=== PATIENT | female | born 1985 | race Caucasian/White ===

== ENCOUNTER 2020-06-17 22:44 | Outpatient (CLI) | payer OTHER, SELFPAY ==
[2020-06-17 22:56] VITALS: TEMP 36.8
[2020-06-18 00:46] VITALS: BP 119/68; PULSE 108
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
--- NOTE | 2020-06-18 16:18 | PCCCNOTE ---
Care Coordination. Pt. referred to SS when discharged for possible baby care items. Pt. discharged when CC got referral. I called pt. this afternoon and left a message, but did not hear back from her.
== END 2020-06-18 00:27 | disposition home or self-care (01) ==
LOC: ANHLDR 06-18 00:32 → ANHOBOP 06-19 09:33 → ANHLDR 06-19 09:33
PROVIDERS: PCP Family Medicine; Visit Provider Obstetrics & Gynecology
DX: O42.90 Premature rupture of membranes, unspecified as to length of time between rupture and onset of labor, unspecified weeks of gestation (principal); Z3A.00 Weeks of gestation of pregnancy not specified
CPT/HCPCS: 59025; 99199

== ENCOUNTER 2020-06-18 17:21 | Outpatient (CLI) | payer OTHER, SELFPAY ==
--- NOTE | ~2020-06-18 | US_ITS ---
EXAMINATION: US OB follow up DATE: 06/18/2020 17:52 INDICATION: False labor during third trimester of TECHNIQUE: Real-time ultrasound of the pelvis was performed. The interpreting radiologist was not pre sent for the study. COMPARISON: None. FINDINGS: There is a single living fetus in vertex presentation. The placenta is posterior. heart rate i s 152 beats per minute (bpm). The amniotic fluid index is 9.3 cm, which is normal (5th%-95%: 8.3-bod y 4.5 cm at 33 weeks estimated gestational age). The following biometric data were obtained: BPD: 8.6 cm -> 34 weeks 5 days Head circumference: 30.5 cm -> 33 weeks 6 days Abdominal circumference: 30.0 cm -> 34 weeks 0 days Femur length: 6.4 cm -> 33 weeks 1 days These measurements are concordant. Head circumference to abdominal circumference ratio: 1.02 (normal range 0.95-1.11). Estimated weight: 2279 g (+/-) 342 g. or 5 lbs. 0 oz. (+/-) 12 oz. IMPRESSION: 1. Single living fetus in vertex presentation with heart rate of 152 bpm. 2. Gestational age by ultrasound of 34 weeks 0 day(s) +/- 2 week(s) 3 day(s) with ultrasound estimate d date of delivery (UTE) of 07/30/2020. Estimated weight is 53rd percentile by Hadlock criteria when 08/03/2020 is used as the UTE. Please correlate with clinical information or earlier ultrasound s for most accurate UTE. 3. Normal amniotic fluid index of 9.3 cm. Reviewed, dictated and finalized at location A. IMPRESSION: 1. Single living fetus in vertex presentation with heart rate of 152 bpm. 2. Gestational age by ultrasound of 34 weeks 0 day(s) +/- 2 week(s) 3 day(s) wi th ultrasound estimated date of delivery (UTE) of 07/30/2020. Estimated w eight is 53rd percentile by Hadlock criteria when 08/03/2020 is used as the UTE . Please correlate with clinical information or earlier ultrasounds for most ac curate UTE. 3. Normal amniotic fluid index of 9.3 cm.
== END 2020-06-18 17:22 | disposition home or self-care (01) ==
PROVIDERS: PCP Family Medicine; Visit Provider Obstetrics & Gynecology
DX: O60.03 Preterm labor without delivery, third trimester (principal); Z3A.34 34 weeks gestation of pregnancy
CPT/HCPCS: 76816

== ENCOUNTER 2020-07-22 23:20 | Inpatient (IN) | payer OTHER, SELFPAY ==
[2020-07-22 23:49] VITALS: BP 117/50; PULSE 116
[2020-07-23] VITALS (46 sets, daily range): BP systolic 77–134; BP diastolic 41–92; PULSE 94–123; RESP 16; TEMP 36.5–36.9; O2SAT 99–100; BMI 35.2
[2020-07-23 00:36] LABS: Basophils Absolute Auto 0.1 K/mm3 (0.0-0.1); Basophils Percent Auto 0.4 % (0.2-1.2); Eosinophils Absolute Auto 0.2 K/mm3 (0-0.3); Eosinophils Percent Auto 1.1 % (0-4.4); Hematocrit 25.3 % (37.0-47.0); Hemoglobin 8.1 g/dL (12.0-15.0); Immature Granulocyte Percent A 0.7 % (0-0.5); Lymphocytes Absolute Auto 2.07 K/mm3 (0.9-3.2); Lymphocytes Percent Auto 15.3 % (18.3-44.2); Mean Corpuscular Hemoglobin 25.6 pg (26-34); Mean Corpuscular Volume 80.1 fl (80-100); Mean Platelet Volume 11.4 fl (7.4-10.4); Monocytes Absolute Auto 1.1 K/mm3 (0.1-0.6); Monocytes Percent Auto 7.9 % (2.6-8.5); Neutrophils Absolute Auto 10.1 K/mm3 (1.3-6.7); Neutrophils Percent Auto 74.6 % (45.5-73.1); Platelet Count Result 290 k/mm3 (150-375); Red Blood Count 3.16 M/mm3 (4.2-5.4); Red Cell Distribution Width 13.3 % (11.5-14.5); White Blood Count 13.5 K/mm3 (4.5-10.0)
[2020-07-23 00:49] LABS: Alanine Aminotransferase 24 U/L (4-35); Albumin Level 3.3 g/dL (3.5-5.1); Alkaline Phosphatase 222 U/L (38-126); Anion Gap 7 mmol/L (8-16); Aspartate Amino Transferase 28 U/L (14-36); Bilirubin,Total 0.2 mg/dL (0.2-1.3); Blood Urea Nitrogen 10 mg/dL (7-17); Calcium 8.5 mg/dL (8.4-10.2); Carbon Dioxide 25 mmol/L (22-30); Chloride 103 mmol/L (98-107); Estimated Glomerular Filt Rate > 60; Glucose 116 mg/dL (65-105); Potassium 3.5 mmol/L (3.4-5.0); Sodium 135 mmol/L (137-145)
[2020-07-23] MEDS: LACTATED RINGERS 1,000 ML 125 ML IV CONT ×2 (00:51→09:38)
[2020-07-23] MEDS: AMPICILLIN 2 GM/NS 100 ML 2 GM/100 ML BAG IVPB (00:51)
--- NOTE | 2020-07-23 01:03 | OBADM ---
This patient, Meggan Mitchell, admitted to the OB room Labor/Delivery/Recovery 104 for observation. Patient/family oriented to hospital policies and general routines including ID bracelet, bed and alarms, visiting hours, pain management, procedures, bathroom and other care routines, personal items, smoking policy, room service/diet, and visiting hours. Patient/Family are encouraged to report perceived risks to care and to ask questions if they do not understand what they are told or what they should do.
[2020-07-23 01:04] LABS: Barbiturate Screen Urine Negative (Negative); Benzodiazepines Screen Urine Negative (Negative)
[2020-07-23 01:15] LABS: Cannabinoid Screen Urine Negative (Negative); Cocaine Screen Urine Negative (Negative); Methadone Screen Urine Negative (Negative); Opiate Screen Urine Negative (Negative); Phencyclidine Screen Urine Negative (Negative)
[2020-07-23 01:26] LABS: Amphetamine Screen Urine Positive (Negative)
[2020-07-23 01:29] LABS: HIV 1/2 Ab P24 Ag Result Negative (Negative)
[2020-07-23] MEDS: FAMOTIDINE 20 MG/2 ML VIAL IV PUSH (01:34)
[2020-07-23 02:08] LABS: Hepatitis B Surface Antigen Negative (Negative)
[2020-07-23 02:09] LABS: Rubella IgG Antibody 16.7 IU/ML
[2020-07-23] MEDS: AMPICILLIN 1 GM/NS 50 ML 1 GM/50 ML BAG IVPB ×2 (04:49→08:47)
--- NOTE | 2020-07-23 07:41 | PM.IMHP ---
H&P: HPI History of Present Illness Date/Time: 07/23/20 07:41 Chief complaint: CTX Leaking Narrative: Meggan Mitchell is a 35 year old female at 40 weeks by 34 week U/S came in late yesterday pm due to leaking fluid starting around 1330 07/22. She has rare contractions. Normal movement. She has had no care during this . Review of Systems Review of Systems: All systems reviewed & are unremarkable except as noted in HPI and below PMFSH Social History Social History Years smoked: 23 Smoking status: Current every day smoker Tobacco type: cigarettes Second hand tobacco smoke exposure: Yes Substance use: former Other substance usage details: Pt states she has used Meth for 1mon 6 years prior. Gender identity (if verbalized by the patient): Female Spiritual care concerns: No Meds Home Medications and Allergies Home Medications Medication Instructions Recorded Confirmed Type 19 1 tablet PO DAILY 06/18/20 07/23/20 History Allergies Allergy/AdvReac Type Severity Reaction Status Date / Time No Known Allergies Allergy Mild Unverified 07/06/06 14:27 Vital Signs Vital Signs - 24 hr 07/22/20 23:49 07/23/20 00:00 07/23/20 00:16 Temperature 36.6 C Pulse Rate 116 H 119 H Blood Pressure 117/50 L 78/49 L 07/23/20 00:30 07/23/20 01:00 07/23/20 01:30 Temperature Pulse Rate 106 H 108 H 113 H Blood Pressure 109/73 113/64 118/56 L 07/23/20 02:00 07/23/20 02:30 07/23/20 03:00 Temperature Pulse Rate 117 H 116 H 113 H Blood Pressure 110/69 127/56 L 107/46 L 07/23/20 03:30 07/23/20 04:00 07/23/20 04:30 Temperature Pulse Rate 118 H 116 H 113 H Blood Pressure 120/61 130/52 L 104/49 L 07/23/20 04:51 07/23/20 05:00 07/23/20 05:30 Temperature 36.5 C Pulse Rate 111 H 106 H Blood Pressure 111/53 L 104/58 L 07/23/20 06:00 07/23/20 06:30 07/23/20 07:00 Temperature Pulse Rate 111 H 113 H 107 H Blood Pressure 116/52 L 104/55 L 103/50 L 07/23/20 07:30 Temperature Pulse Rate 100 Blood Pressure 109/55 L Exam Const: General: no acute distress HENMT: Teeth and gingiva: poor dentition Resp: Auscultation: clear to auscultation bilaterally Cardio: Rate: regular rate Rhythm: regular rhythm GI: Inspection: non-distended GI Palp: Yes Soft to palpation, No Tenderness to palpation present (GI) and Yes Other GI palpation findings present (gravid) : Manual OB Exam: dilated 4 cm, effaced 25%, station -2 and other (Forebag attempted to artificially rupture but she was intolerant) Extrem: General: no edema Psych: Mental Status: mental status grossly normal H&P: Results Labs Labs: Short CBC 07/23/20 Range/Units 00:25 WBC 13.5 H (4.5-10.0) K/mm3 Hgb 8.1 L (12.0-15.0) g/dL Hct 25.3 L (37.0-47.0) % Plt Count 290 (150-375) k/mm3 BMP 07/23/20 00:25 Sodium 135 L Potassium 3.5 Chloride 103 Carbon Dioxide 25 BUN 10 Creatinine 0.50 L Glucose 116 H Calcium 8.5 Liver Function 07/23/20 Range/Units 00:25 Total Bilirubin 0.2 (0.2-1.3) mg/dL AST 28 (14-36) U/L ALT 24 (4-35) U/L Alkaline Phosphatase 222 H (38-126) U/L Albumin 3.3 L (3.5-5.1) g/dL Assessment and Plan Assessment and plan (1) PROM (premature rupture of membranes): Code(s): O42.90 - Premature rupture of membranes, unspecified as to length of time between rupture and onset of labor, unspecified weeks of gestation Status: Acute Assessment and Plan: GBS unknown, on antibiotics. Augment with pitocin. 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 They will be involved with the disposition of this once born
[2020-07-23] MEDS: OXYTOCIN 30 UNITS/NS 500 ML 30 UNITS/500 ML BAG IV CONT (07:43)
[2020-07-23 08:53] LABS: Rapid Plasma Reagin Non-Reactive (NonReactive)
--- NOTE | 2020-07-23 09:53 | WPDANESEPP ---
Anes - Eval Pre Procedure Procedure: Labor epidural Date/Time: 07/23/20 09:53 Surgeon: Joey Preop Diagnosis: Labor epidural Pre Op Diagnosis: CTX Leaking Patient Data Age: 35 Gender: F Height: 5 ft 4 in Weight: 93 kg Last Vital Signs Temp 97.9 F 07/23/20 09:00 Pulse 99 07/23/20 09:30 BP 124/50 L 07/23/20 09:30 Allergies Allergy/AdvReac Type Severity Reaction Status Date / Time No Known Allergies Allergy Mild Unverified 07/06/06 14:27 Home Medications Medication Instructions Recorded Confirmed Type 19 1 tablet PO DAILY 06/18/20 07/23/20 History Laboratory Tests 07/23/20 07/23/20 07/23/20 00:25 00:25 00:25 WBC 13.5 K/mm3 H K/mm3 (4.5-10.0) RBC 3.16 M/mm3 L M/mm3 (4.2-5.4) Hgb 8.1 g/dL L g/dL (12.0-15.0) Hct 25.3 % L % (37.0-47.0) MCV 80.1 fl fl (80-100) MCH 25.6 pg L pg (26-34) MCHC 32.0 g/dl g/dl (32-36) RDW 13.3 % % (11.5-14.5) Plt Count 290 k/mm3 k/mm3 (150-375) MPV 11.4 fl H fl (7.4-10.4) Immature Gran % (Auto) 0.7 % H % (0-0.5) Neut % (Auto) 74.6 % H % (45.5-73.1) Lymph % (Auto) 15.3 % L % (18.3-44.2) [place] % (Auto) 7.9 % % (2.6-8.5) Eos % (Auto) 1.1 % % (0-4.4) Baso % (Auto) 0.4 % % (0.2-1.2) Lymph # (Auto) 2.07 K/mm3 K/mm3 (0.9-3.2) [place] # (Auto) 1.1 K/mm3 H K/mm3 (0.1-0.6) Eos # (Auto) 0.2 K/mm3 K/mm3 (0-0.3) Baso # (Auto) 0.1 K/mm3 K/mm3 (0.0-0.1) Abs Immat Gran (auto) 0.10 K/mm3 H K/mm3 (0.00-0.031) Absolute Neuts (auto) 10.1 K/mm3 H K/mm3 (1.3-6.7) Absolute Nucleated RBC 0.0 K/mm3 K/mm3 (0.0-0.012) Nucleated RBC % 0.0 % % (0.0-0.2) Sodium Potassium Chloride Carbon Dioxide Anion Gap BUN Creatinine Estim Creat Clear Calc Estimated GFR Glucose Calcium Total Bilirubin AST ALT Alkaline Phosphatase Total Protein Albumin Urine Opiates Screen Urine Methadone Screen Ur Barbiturates Screen Ur Phencyclidine Scrn Ur Amphetamine Screen U Benzodiazepines Scrn Urine Cocaine Screen U Cannabinoids Screen RPR Non-reactive (NonReactive) Hep Bs Antigen HIV 1&2 Ab/P24 Ag 4thGn Negative (Negative) Rubella IgG Antibody Blood Type Antibody Screen 07/23/20 07/23/20 07/23/20 00:25 00:25 00:25 WBC RBC Hgb Hct MCV MCH MCHC RDW Plt Count MPV Immature Gran % (Auto) Neut % (Auto) Lymph % (Auto) [place] % (Auto) Eos % (Auto) Baso % (Auto) Lymph # (Auto) [place] # (Auto) Eos # (Auto) Baso # (Auto) Abs Immat Gran (auto) Absolute Neuts (auto) Absolute Nucleated RBC Nucleated RBC % Sodium Potassium Chloride Carbon Dioxide Anion Gap BUN Creatinine Estim Creat Clear Calc Estimated GFR Glucose Calcium Total Bilirubin AST ALT Alkaline Phosphatase Total Protein Albumin Urine Opiates Screen Negative (Negative) Urine Methadone Screen Negative (Negative) Ur Barbiturates Screen Negative (Negative) Ur Phencyclidine S
--- NOTE | 2020-07-23 11:10 | WPDANESEPP ---
Anes - Eval Pre Procedure Procedure: Labor epidural Date/Time: 07/23/20 11:10 Surgeon: roque Preop Diagnosis: Abd pain with contractions Pre Op Diagnosis: CTX Leaking Patient Data Age: 35 Gender: F Height: 5 ft 4 in Weight: 93 kg Last Vital Signs Temp 97.9 F 07/23/20 09:00 Pulse 105 H 07/23/20 10:40 BP 128/67 07/23/20 10:40 Pulse Ox 99 07/23/20 10:18 Allergies Allergy/AdvReac Type Severity Reaction Status Date / Time No Known Allergies Allergy Mild Unverified 07/06/06 14:27 Home Medications Medication Instructions Recorded Confirmed Type 19 1 tablet PO DAILY 06/18/20 07/23/20 History Laboratory Tests 07/23/20 07/23/20 07/23/20 00:25 00:25 00:25 WBC 13.5 K/mm3 H K/mm3 (4.5-10.0) RBC 3.16 M/mm3 L M/mm3 (4.2-5.4) Hgb 8.1 g/dL L g/dL (12.0-15.0) Hct 25.3 % L % (37.0-47.0) MCV 80.1 fl fl (80-100) MCH 25.6 pg L pg (26-34) MCHC 32.0 g/dl g/dl (32-36) RDW 13.3 % % (11.5-14.5) Plt Count 290 k/mm3 k/mm3 (150-375) MPV 11.4 fl H fl (7.4-10.4) Immature Gran % (Auto) 0.7 % H % (0-0.5) Neut % (Auto) 74.6 % H % (45.5-73.1) Lymph % (Auto) 15.3 % L % (18.3-44.2) [place] % (Auto) 7.9 % % (2.6-8.5) Eos % (Auto) 1.1 % % (0-4.4) Baso % (Auto) 0.4 % % (0.2-1.2) Lymph # (Auto) 2.07 K/mm3 K/mm3 (0.9-3.2) [place] # (Auto) 1.1 K/mm3 H K/mm3 (0.1-0.6) Eos # (Auto) 0.2 K/mm3 K/mm3 (0-0.3) Baso # (Auto) 0.1 K/mm3 K/mm3 (0.0-0.1) Abs Immat Gran (auto) 0.10 K/mm3 H K/mm3 (0.00-0.031) Absolute Neuts (auto) 10.1 K/mm3 H K/mm3 (1.3-6.7) Absolute Nucleated RBC 0.0 K/mm3 K/mm3 (0.0-0.012) Nucleated RBC % 0.0 % % (0.0-0.2) Sodium Potassium Chloride Carbon Dioxide Anion Gap BUN Creatinine Estim Creat Clear Calc Estimated GFR Glucose Calcium Total Bilirubin AST ALT Alkaline Phosphatase Total Protein Albumin Urine Opiates Screen Urine Methadone Screen Ur Barbiturates Screen Ur Phencyclidine Scrn Ur Amphetamine Screen U Benzodiazepines Scrn Urine Cocaine Screen U Cannabinoids Screen RPR Non-reactive (NonReactive) Hep Bs Antigen HIV 1&2 Ab/P24 Ag 4thGn Negative (Negative) Rubella IgG Antibody Blood Type Antibody Screen 07/23/20 07/23/20 07/23/20 00:25 00:25 00:25 WBC RBC Hgb Hct MCV MCH MCHC RDW Plt Count MPV Immature Gran % (Auto) Neut % (Auto) Lymph % (Auto) [place] % (Auto) Eos % (Auto) Baso % (Auto) Lymph # (Auto) [place] # (Auto) Eos # (Auto) Baso # (Auto) Abs Immat Gran (auto) Absolute Neuts (auto) Absolute Nucleated RBC Nucleated RBC % Sodium Potassium Chloride Carbon Dioxide Anion Gap BUN Creatinine Estim Creat Clear Calc Estimated GFR Glucose Calcium Total Bilirubin AST ALT Alkaline Phosphatase Total Protein Albumin Urine Opiates Screen Negative (Negative) Urine Methadone Screen Negative (Negative) Ur Barbiturates Screen Neg
--- NOTE | 2020-07-23 12:55 | PM.OBPRVD ---
OB - Delivery Note Procedure Delivery date: 07/23/20 Procedure: events: No Care and Prolonged Rupture of Membrane Intrapartal events: Prolonged Latent Phase Induction method: none Delivery augmentation: pitocin Delivery monitor: external FHT and external uterine Route of delivery: Episiotomy description: None Specimen: Yes Estimated blood loss (mL): 225 Anesthesia type: Epidural Disposition: floor Baby Date of : 07/23/20 Time of : 12:45 Weeks of gestation at delivery: 39 Infant gender: Female Weight (pounds): 8 Weight (ounces): 9 presentation: vertex position: Right Occiput Anterior Placenta delivery description: Spontaneous cord vessel description: 3 Vessels, Nuchal Cord and Clamped/Cut score one minute: 9 score five minutes: 9
[2020-07-23] MEDS: OXYTOCIN 30 UNITS/NS 500 ML 30 UNITS/500 ML BAG 125 UNITS IV CONT (13:11)
[2020-07-23] MEDS: IBUPROFEN 600 MG TABLET PO ×2 (14:14→18:35)
[2020-07-23] MEDS: WITCH HAZEL 40 PADS 1 PAD TOPICAL (14:15)
[2020-07-23] MEDS: BENZOCAINE 20% AER SPR (*SP) 56 GM CAN 1 SPRAY TOPICAL (14:15)
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
--- NOTE | 2020-07-23 16:37 | PC.NURSE ---
1600--Report from DCFS(Azalea) that is allowed to be cared for by mother while at the hospital but will surrender baby upon discharge. Infant will be allowed in mother's room unsupervised.
--- NOTE | 2020-07-23 17:19 | PC.NURSE ---
1630 Limited assessment due to pt's argumentative state. Pt allowed blood pressure cuff to be placed and then received a phone call and started shouting This is cutting off my fingers. This is [id number]@#%[id number] ridiculous. blood pressure cuff removed. Pt using many expletives and cursing at staff, calling names and threatening to tisha the hospital for not meeting her special emotional needs .
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
[2020-07-23] MEDS: DOCUSATE SODIUM 100 MG CAPSULE PO (18:35)
[2020-07-23] MEDS: POLYSACCHARIDE IRON COMPLEX 150 MG CAPSULE PO (18:35)
--- NOTE | 2020-07-23 18:45 | PC.NURSE ---
1545--DCFS at bedside to discuss plan of care with pt.
[2020-07-23] MEDS: SIMETHICONE 80 MG TAB.CHEW PO (21:25)
[2020-07-24] MEDS: IBUPROFEN 600 MG TABLET PO ×3 (00:15→17:16)
[2020-07-24 05:30] LABS: Hematocrit 24.8 % (37.0-47.0); Hemoglobin 8.1 g/dL (12.0-15.0)
--- NOTE | 2020-07-24 07:31 | WPDANLDPN2 ---
Anes-Prog Note L&D Date/Time: 07/24/20 07:31 Comfortable throughout: labor and delivery Neuraxial method: epidural Epidural/Spinal procedure site: clean & non-tender Neuro status: Neuro function grossly intact. Cardiovascular status: normal Respiratory status: normal Airway patency: baseline Mental status: baseline Post-Op hydration status: normal Vital Signs: Last Vital Signs Temp 36.8 C 07/23/20 18:35 Pulse 100 07/23/20 18:35 Resp 16 07/23/20 18:35 BP 125/66 07/23/20 18:35 Pulse Ox 99 07/23/20 10:18 Pain score (VAS): 09/28 I/O: Intake & Output 07/23/20 07/23/20 07/24/20 15:59 23:59 07:59 Intake Total 2300 Output Total 67 Balance 2233 Post-procedural complaints: none Patient feedback: Patient satisfied with anesthetic care.
[2020-07-24 08:00] VITALS: BP 108/68; PULSE 78; RESP 18; TEMP 36.8
[2020-07-24] MEDS: WITCH HAZEL 40 PADS 1 PAD TOPICAL (08:36)
[2020-07-24] MEDS: BENZOCAINE 20% AER SPR (*SP) 56 GM CAN 1 SPRAY TOPICAL (08:36)
[2020-07-24] MEDS: DOCUSATE SODIUM 100 MG CAPSULE PO (08:37)
[2020-07-24] MEDS: POLYSACCHARIDE IRON COMPLEX 150 MG CAPSULE PO ×2 (08:37→17:16)
--- NOTE | 2020-07-24 14:13 | PM.OBPNVD ---
OB - PN: Subj Subjective Date/time seen: 07/24/20 14:13 Interval history: Denies chest pain, SOB, dizziness. Patient comments: no complaints, pain well controlled and other (Lochia less than menses) baby status: doing well OB - PN: Obj Data Labs CBC & Chem 7: 07/24/20 04:28 07/23/20 00:25 Labs: Laboratory Results - last 24 hr 07/24/20 04:28 Hgb 8.1 L Hct 24.8 L OB - PN A/P Assessment and Plan (1) Anemia: Code(s): D64.9 - Anemia, unspecified Status: Acute Assessment and Plan: Asymptomatic. Lochia less than menses Plan day: 1 (s/p vaginal delivery, doing well) Plan: routine care Time Spent With Patient Time: Total time spent is greater than 50% in coordination of care (as documented) at patient's floor/unit and/or counseling patient: Time with patient: less than 15 minutes Exam Const: General: no acute distress GI: Inspection: other (Fundus firm and nontender at umbilicus) GI Palp: Yes Soft to palpation and No Tenderness to palpation present (GI) Extrem: General: no edema
--- NOTE | 2020-07-24 18:54 | PC.NURSE ---
1824 Pt left second floor to go to Nursery down in level II nursery. She refused for nurse to accompany her, saying I'm discharged .
--- NOTE | 2020-07-24 18:56 | PC.NURSE ---
1736 Call to Azalea Cobb DCFS worker, to advise her of mother's discharge tonight, and that baby is in Level II nursery. No answer at [phone] and unable to leave a message. 1753 Second attempt to call DCFS worker. No answer and unable to leave message. 1809 Call from Azalea Cobb, DCFS worker. Advised of mother's discharge, and that baby is in Level II nursery. She appreciated the update.
--- NOTE | 2020-07-28 11:03 | PM.OBDSVD ---
DS: Admitting Diagnosis Admitting Diagnosis Admitting Diagnosis: CTX Leaking DS: Discharge Diagnosis Discharge Diagnosis (1) PROM (premature rupture of membranes): Code(s): O42.90 - Premature rupture of membranes, unspecified as to length of time between rupture and onset of labor, unspecified weeks of gestation Status: Acute (2) Methamphetamine use: Code(s): F15.10 - Other stimulant abuse, uncomplicated Status: Acute (3) Anemia: Code(s): D64.9 - Anemia, unspecified Status: Acute OB - DS: Summary OB Procedures : None OB Procedures Intrapartum: Spontaneous Vag Delivery OB Procedures: : None Peripartum Data Infant Delivery Method: Natural Vaginal Laceration Description: None Episiotomy description: None Status at Discharge Functional status at discharge: independent ambulation Overall status at discharge: patient is progressing back to baseline Time Spent with Patient Time attestation: Total time spent providing and/or coordinating discharge services: Time spent: Less than 30 minutes DS: Data Data Completed and Pending Completed studies during hospitalization: Pending at discharge 07/23/20 13:58 Surgical [PTH] Routine Discharge Plan Discharge Attending physician on discharge: Irene Cook Discharging Clinician: Irene Cook Anticipated Discharge Date/Time: 07/24/20 17:25 Patient Disposition: Home, Self-Care Activity: may shower, no straining, may drive after 2 weeks, as tolerated and pelvic rest Diet: regular Discharge Instructions: Education: Mom and Baby Guide Given to: Mother Follow-Up: Call your delivering provider's office for an appointment to be seen in: 4 Weeks Mom and baby should come to the [facility] for the follow-up appointment. Deferred; see in office BREAST CARE: * Wear a snug supportive bra. * For engorgement discomfort: Bottle Feeding: * May apply ice packs EPISIOTOMY/PERINEAL CARE: * Until bleeding stops, use your rebekah bottle after urinating * Change your pad frequently throughout the day * You may take sitz baths several times a day (fill your bathtub with warm water and soak for 20 minutes.) Do NOT bathe in the water * No tub baths until seen by your physician - You may shower ACTIVITY: * Rest as much as possible. * Do not exercise or lift anything heavier than your baby (such as laundry or other children.) * Avoid stairs or driving as much as possible. * Do not put anything into the vagina. No douching, tampons, or sexual activity until seen by physician. NOTIFY PHYSICIAN IF YOU HAVE ANY QUESTIONS OR IF ANY OF THE FOLLOWING SYMPTOMS OCCUR: * If your episiotomy or incision becomes red, swollen, or more painful than what you have experienced in the hospital. * If your vaginal bleeding becomes foul smelling. * If your vaginal bleeding becomes more heavy than a period or if your bleeding changes from pink to bright red. However, you may pass an occasional walnut-sized clot once or twice for the first week . * If you experience a sharp, shooting pain in you calves. * If you discover a hard, reddened area on your breast or if you experience flu-like symptoms. *Temperature of 100.4 or higher DIET: * Eat regular, well-balanced meals. * Drink plenty of fluids daily. Patient Instructions: How to Stop Smoking (DC) Stand Alone Forms: General Discharge Information Follow-up/Referrals: Irene Cook MD [Physician] - 4 Weeks Discharge Medications: New ibuprofen 600 mg Tablet 600 mg PO Q6H PRN (Reason: Cramping) RF: 0 Continued 19 29 mg iron- 1 mg Tablet,Chewable 1 tablet PO DAILY RF: 0 Date of admission: 07/22/20 23:21 Primary Care Provider: Gage Hill Admitting Provider: Irene Cook Attending physician on admission: Irene Cook Condition: Stable
== END 2020-07-24 18:25 | disposition home or self-care (01) | DRG 560 ==
LOC: ANHLDR 07-23 01:35 → ANHOB2 07-23 16:21
PROVIDERS: Admitting Provider Obstetrics & Gynecology; PCP Family Medicine; Visit Provider Obstetrics & Gynecology
DX: O42.92 Full-term premature rupture of membranes, unspecified as to length of time between rupture and onset of labor (principal); Z37.0 Single live birth; Z3A.39 39 weeks gestation of pregnancy; O99.824 Streptococcus B carrier state complicating childbirth; O69.81X0 Labor and delivery complicated by cord around neck, without compression, not applicable or unspecified; O99.334 Smoking (tobacco) complicating childbirth; F17.210 Nicotine dependence, cigarettes, uncomplicated; O99.344 Other mental disorders complicating childbirth; F31.9 Bipolar disorder, unspecified; O99.214 Obesity complicating childbirth; E66.9 Obesity, unspecified; F43.10 Post-traumatic stress disorder, unspecified; D64.9 Anemia, unspecified; O90.81 Anemia of the puerperium; O99.324 Drug use complicating childbirth; F15.90 Other stimulant use, unspecified, uncomplicated
CPT/HCPCS: 36415; 80053; 80307; 84112; 85014; 85018; 85025; 86592; 86703; 86762; 86850; 86900; 86901; 87340; 88307; A9270; G0432; J0290; J2590; J2795; J7120